=== PATIENT | female | born 2005 | race Caucasian/White ===

== ENCOUNTER 2025-06-05 19:09 | Inpatient (IN) | payer OTHER ==
[2025-06-05 19:42] VITALS: BMI 23.3
[2025-06-05] MEDS ORDERED: hydrALAZINE 20 MG/ML VIAL SLOW IVP PRN ×2 (21:12→22:13)
[2025-06-05] MEDS ORDERED: Diphenoxylate HCl/Atropine Tablet PO PRN ×2 (22:13)
[2025-06-05] MEDS ORDERED: Acetaminophen 500 MG TAB PO PRN (22:13)
[2025-06-05] MEDS ORDERED: Tranexamic Acid 1,000 MG/10 ML VIAL IVP PRN (22:13)
[2025-06-05] MEDS ORDERED: Methylergonovine 0.2 MG/ML VIAL IM PRN (22:13)
[2025-06-05] MEDS ORDERED: Oxytocin 30 units/NS 500 ML 500 ML IV SCH (22:15)
[2025-06-05 22:34] LABS: Hematocrit 32.6 % (34.9-44.5); Hemoglobin 10.9 g/dL (12.0-15.5); Mean Corpuscular Hemoglobin 29.4 pg (27.0-33.0); Mean Corpuscular Volume 87.9 fL (81.6-98.3); Platelet Count 278 10x3/uL (150-450); Red Blood Cell (RBC) Count 3.71 10x6/uL (3.90-5.03); White Blood Cell (WBC) Count 13.35 10x3/uL (3.5-10.5)
[2025-06-05 23:15] LABS: Hep B Surf Ag - L&D Non-Reactive S/CO (NonReactive)
[2025-06-05 23:17] LABS: Syphilis Antibody Index 0.07 S/CO (<1.00 Non-Reactive)
[2025-06-06] MEDS: Ondansetron PF 4 MG/2 ML Vial IVP PRN (03:20)
[2025-06-06] MEDS: Lidocaine 1% (PF) 30 ML VIAL SC PRN (09:11)
[2025-06-06] MEDS: CEFAZOLIN 2 GM VIAL ONE (09:39)
[2025-06-06] MEDS ORDERED: Preparation H Ointment 28 GM TUBE PR PRN (12:10)
[2025-06-06] MEDS ORDERED: diphenhydrAMINE 25 MG CAP PO PRN (12:10)
[2025-06-06] MEDS ORDERED: Lanolin Ointment 7 GM TUBE TOP PRN (12:10)
[2025-06-06] MEDS ORDERED: hydrALAZINE 20 MG/ML VIAL SLOW IVP PRN (12:10)
[2025-06-06] MEDS: Ferrous Sulfate 325 MG TAB PO SCH (13:34)
[2025-06-06] MEDS: Ibuprofen 800 MG TAB PO SCH ×2 (16:11→20:07)
[2025-06-07] MEDS: Benzocaine-Menthol 82.5 ML CAN TOP PRN (08:01)
[2025-06-07] MEDS: Milk Of Magnesia 30 ML UDCUP PO PRN (08:01)
[2025-06-07] MEDS: Lidocaine 1% (PF) 30 ML VIAL ONE (16:29)
[2025-06-08 08:30] VITALS: BP 108/56; TEMP 97.8
== END 2025-06-08 18:20 | disposition home or self-care (01) | DRG 768 ==
LOC: CSHLD/OP 19:09 → CSHLD 22:23 → CSHPP 06-06 11:53
PROVIDERS: ADMIT Obstetrics & Gynecology; ATTEND Obstetrics & Gynecology
PROC: 4A1HXCZ Monitoring of Products of Conception, Cardiac Rate, External Approach (ICD-10-PCS; 2025-06-05)
PROC: 10E0XZZ Delivery of Products of Conception, External Approach (ICD-10-PCS; principal; 2025-06-06)
PROC: 0DQR0ZZ Repair Anal Sphincter, Open Approach (ICD-10-PCS; 2025-06-06)
PROC: 3E03329 Introduction of Other Anti-infective into Peripheral Vein, Percutaneous Approach (ICD-10-PCS; 2025-06-06)
DX: O99.52 Diseases of the respiratory system complicating childbirth (principal); Z37.0 Single live birth; J45.909 Unspecified asthma, uncomplicated; Z3A.39 39 weeks gestation of pregnancy; Z98.890 Other specified postprocedural states; Z91.0120 Allergy to eggs, unspecified; O70.20 Third degree perineal laceration during delivery, unspecified
CPT/HCPCS: 36415; 85027; 86780; 86850; 86900; 86901; 87340; 99285; J2003; J2405; J3010